=== PATIENT | female | born 1950 | race Two or more races ===

== ENCOUNTER 2020-07-13 11:34 | Emergency (ER) | payer MEDICARE, OTHER ==
[~2020-07-13] VITALS: Ht 154.9 cm; Wt 93.0 kg
--- NOTE | 2020-07-13 11:36 | NUR ---
ED Nurse Note: EMS stated that pt lives in a skilled nursing house and called ambulance bc she didn't want to be there anymore and they weren't giving her htn meds to her. staff denied this. pt couldn't give the EMS a reason why she needed to go to the hospital so she told them she has htn and anxious bc she doesn't want to be there anymore.
--- NOTE | 2020-07-13 11:48 | NUR ---
ED Nurse Note: spoke with pt, she stated that she was in the [facility] for 4 days and was dc'd yesterday. she was there for her bp. pt stated when she was dc'd she was taken to a alf house. pt stated she doesn't need anything done here today, she just wants her bp med. she stated that she would not go back there that the person who runs that place is an "idiot". pt is always on 3 to 4 liters of O2 all the time but hasn't had it since she was dc'd. her O2 was 78.
[2020-07-13 11:55] VITALS: BP 155/81
--- NOTE | 2020-07-13 12:00 | NUR ---
ED Nurse Note: pt refusing any ER treatment. pt wants to leave, states she doesn't want to be admitted, have any treatment. pt is 77 on room air and 92% on 1 liter. she states she understands and is going to sign an AMA form.
[2020-07-13] MEDS ORDERED: LOSARTAN POTASS50 MG ORAL (12:23)
[2020-07-13] MEDS ORDERED: NORVASC5 MG ORAL (12:23)
--- NOTE | 2020-07-13 12:24 | Emergency Room Report ---
History of Present Illness General Chief Complaint: Hypertension Source: Patient, EMS Present Illness HPI The patient presents via EMS saying that her blood pressure is out of control and she feels stressed out. Apparently at the transitional living where she is they have not filled given her for blood pressure medication. She feels anxious and has got in arguments with the people running the transitional living. She was just discharged from [facility] 2 days ago. While in the hospital she was on oxygen. She was not discharged on oxygen. She says that they gave her diuretics. She has a history of congestive heart failure, COPD and hypertension. She has been taking her Lasix. She does have an inhaler and an Advair Diskus. She denies wheezing or shortness of breath at this time. Patient denies chest pain, fevers or chills, productive cough. The patient tested negative for Covid when she was in the hospital. She does have no of any contact with Covid positive people. No sore throat, palpitations, nausea, vomiting, diarrhea, dysuria, abdominal pain, rashes, visual changes, dizziness, headache. The patient has her own wheelchair. He is able to ambulate but has hip pain. Allergies: Coded Allergies: No Known Allergies (Unverified , 07/13/20) COVID-19 Screening Contact w/high risk pt: No Experienced COVID-19 symptoms?: No COVID-19 Testing performed HOUSE DETECTIVE: No - pt refused to disclose Patient History Past Medical History: see triage record Social History: Denies: alcohol use, drug use Social History Narrative was staying at a transitional living home Last Menstrual Period: unk Reviewed Nursing Documentation: PMH: Agreed; PSxH: Agreed Nursing Documentation-PMH Hx Hypertension: Yes Hx COPD: Yes Review of Systems All Other Systems: negative except mentioned in HPI Physical Exam Vital Signs Date Time Temp Pulse Resp B/P (MAP) Pulse Ox O2 Delivery O2 Flow Rate FiO2 07/13/20 11:32 98.4 98 18 200/98 (132) 95 Room Air Sp02 EP Interpretation: reviewed, abnormal - Interpreted as slightly low by me General Appearance: well appearing, no apparent distress, GCS 15, non-toxic Head: normocephalic Eyes: bilateral eye PERRL, bilateral eye other - Disconjugate gaze ENT: moist mucus membranes Neck: full range of motion, supple Respiratory: lungs clear, normal breath sounds, no respiratory distress, no wheezing Cardiovascular #1: regular rate, rhythm, no edema Cardiovascular #2: 2+ radial (R) Gastrointestinal: normal inspection, normal bowel sounds, non tender, no mass, non-distended, overweight Musculoskeletal: back normal, normal range of motion, no calf tenderness, gait/station normal Neurologic: alert, oriented x3, grossly normal Psychiatric: mood/affect normal, no suicidal/homicidal ideation, no delusions Skin: no rash, warm/dry Medical Decision Making Diagnostic Impression: Primary Impression: Hypertension Qualified Codes: I10 - Essential (primary) hypertension Additional Impressions: Left against medical advice Hypoxia COPD (chronic obstructive pulmonary disease) Qualified Codes: J44.9 - Chronic obstructive pulmonary disease, unspecified ER Course Patient presents with anxiety and hypertension after recent discharge from hospitalization. The patient also has a low pulse oximetry. Differential includes acute myocardial infarction, congestive heart failure, Covid, COPD amongst others. Patient evaluated with EKG, chest x-ray and labs. Patient placed on a property assessment monitor. When I discussed the evaluation that I wanted to 100 take the patient basically refused. She did not want to have her labs drawn. I then stated that I could evaluate her with an EKG and chest x-ray and she still refused this. At the time we had a discussion her pulse oximetry was 93% on 1 L/min by nasal cannula. Intermittently would drop down to 88%. I advised her of this and told her that at this time she needed oxygen and most likely needed admission to the hospital. She flatly refused the latter. I tried to work with her to at least get an EKG and chest x-ray but she also refused these. I told her that she risk dying if she did not get these tests done. She was competent and understood the risks of signing out AGAINST MEDICAL ADVICE. I told the patient to return if she changed her mind. Rhythm Strip Diag. Results EP Interpretation: yes Rhythm: NSR, no PVC's, no ectopy Last Vital Signs Date Time Temp Pulse Resp B/P (MAP) Pulse Ox O2 Delivery O2 Flow Rate FiO2 07/13/20 11:59 66 07/13/20 11:55 98.4 18 155/81 77 Room Air The last pulse oximetry prior to the patient leaving was 92%. Status: unchanged Disposition: AGAINST MEDICAL ADVICE Condition: Unknown Scripts Losartan Potassium* (LOSARTAN POTASSIUM*) 50 Mg Tablet 100 MG ORAL DAILY for Hypertension, #30 TAB Prov: Onesimo Duckworth MD 07/13/20 Amlodipine Besylate (Norvasc) 5 Mg Tablet 5 MG ORAL DAILY, #30 TAB Prov: Onesimo Duckworth MD 07/13/20 Onesimo Duckworth MD Jul 13, 2020 12:24
--- NOTE | 2020-07-13 12:41 | NUR ---
ER DISCHARGE NOTE: Patient refused medical assistance and was discharged AMA per KAMILA, pt is aox4. SEYMOURD spoke with pt and explained the risks of leaving without receiving treatment. pt stated she understood but wasn't staying. pt was given AMA paperwork, signed it and prescription and copy AMA instructions given to her. pt was able to verbalize understanding, pt id band removed. pt wheeled out of ER in her own wheelchair. pt took all belongings.
== END 2020-07-13 12:45 | disposition left against medical advice (07) ==
LOC: EDBD 11:34 → EMR 12:04
DX: I10 Essential (primary) hypertension (principal); R09.02 Hypoxemia; J44.9 Chronic obstructive pulmonary disease, unspecified; Z53.29 Procedure and treatment not carried out because of patient's decision for other reasons; Z79.899 Other long term (current) drug therapy
CPT/HCPCS: 99282